=== PATIENT | female | born 1985 | race Caucasian/White ===

== ENCOUNTER → 2021-11-30 | Outpatient (CLI) | payer OTHER | END | disposition home or self-care (01) | LOC: LAB SHORT 10:47 → LAB 10:47 | DX: Z34.93 Encounter for supervision of normal pregnancy, unspecified, third trimester (principal); Z3A.36 36 weeks gestation of pregnancy | CPT/HCPCS: 87081; 87150 ==

== ENCOUNTER 2022-01-08 06:16 | Inpatient (IN) | payer OTHER ==
[~2022-01-08] VITALS: Ht 162.6 cm; Wt 90.0 kg
[2022-01-08 09:27] LABS: BASOPHILS ABSOLUTE AUTO 0.02 K/mm3 (0.00-0.23); BASOPHILS PERCENT AUTO 0 % (0-2); EOSINOPHILS ABSOLUTE AUTO 0.15 K/mm3 (0.00-0.68); EOSINOPHILS PERCENT AUTO 2 % (0-6); Hematocrit 35.8 % (33.0-51.0); Hemoglobin 11.7 g/dL (11.5-16.0); IMMATURE GRAN ABSOLUTE AUTO 0.05 K/mm3 (0.00-0.10); IMMATURE GRAN PERCENT AUTO 1 % (0-1); LYMPHOCYTES ABSOLUTE AUTO 1.64 K/mm3 (0.84-5.20); LYMPHOCYTES PERCENT AUTO 18 % (21-46); MONOCYTES ABSOLUTE AUTO 0.65 K/mm3 (0.16-1.47); MONOCYTES PERCENT AUTO 7 % (4-13); Mean Corpuscular HGB 28.3 pg (26.0-34.0); Mean Corpuscular HGB Conc 32.7 g/dL (31.5-36.5); Mean Corpuscular Volume 87 fL (80-100); NEUTROPHILS ABSOLUTE AUTO 6.61 K/mm3 (1.96-9.15); NEUTROPHILS PERCENT AUTO 73 % (41-73); RDW Coefficient Variation 15.2 % (11.7-14.2); RDW Standard Deviation 48.1 fL (35.1-46.3); Red Blood Cell Count 4.13 M/mm3 (3.80-5.20); White Blood Cell Count 9.12 K/mm3 (4.00-11.30)
[2022-01-08 09:47] LABS: Platelet Count 268 K/mm3 (150-400)
[2022-01-09 03:34] LABS: Source, Urine Foley catheter
[2022-01-09 03:39] LABS: Bilirubin, Urine Neg (Neg); Blood, Urine 3+ (Neg); Glucose Qualitative, Urine Neg (Neg); Ketones, Urine Neg (Neg); Leukocyte Esterase, Urine Neg (Neg); Nitrite, Urine Neg (Neg); Protein, Urine 2+ (Neg); Urobilinogen, Urine NORM (Normal)
[2022-01-09 03:48] LABS: Appearance, Urine Hazy (Clear); Color, Urine Yellow (P-Yellow)
[2022-01-09 03:49] LABS: Bacteria Rare /hpf; Squamous Epithelial Cells Few /hpf (Few); Transitional Epithelial Cells Few /hpf (0-Rare); White Blood Cells, Urine 0-2 /hpf (0-5)
[2022-01-09 04:31] LABS: PCO2 Cord - Arterial 51.2 mmHg (40-50); PO2 Cord - Arterial 17.3 mmHg (16-20); pH Cord - Arterial 7.31 (7.28-7.35)
[2022-01-09 04:33] LABS: PCO2 Cord - Venous 44.7 mmHg (40-50); PO2 Cord - Venous 19.9 mmHg (28-32); pH Umbilical Cord - Venous 7.33 (7.26-7.35)
--- NOTE | 2022-01-09 04:41 | NUR ---
01/09/22 0441 Rohith Palomino PT TO OR WITH HEREDIA IN PLACE. APPROX 50CC CLEAR YELLOW URINE OUTPUT MEASURED DURING CASE. BABY BOY 8 9 BORN AT 0410. TAKEN BY BABY NURSE AND SECOND STAFF MEMBER. CORD GAS AND CORD SENT WITH STAFF WITH BABY. PLACENTA PLACED IN BAG AND LABELED.
[2022-01-09 12:37] LABS: BASOPHILS ABSOLUTE AUTO 0.02 K/mm3 (0.00-0.23); BASOPHILS PERCENT AUTO 0 % (0-2); EOSINOPHILS ABSOLUTE AUTO 0.02 K/mm3 (0.00-0.68); EOSINOPHILS PERCENT AUTO 0 % (0-6); Hematocrit 32.6 % (33.0-51.0); Hemoglobin 10.2 g/dL (11.5-16.0); IMMATURE GRAN ABSOLUTE AUTO 0.08 K/mm3 (0.00-0.10); IMMATURE GRAN PERCENT AUTO 0 % (0-1); LYMPHOCYTES ABSOLUTE AUTO 1.78 K/mm3 (0.84-5.20); LYMPHOCYTES PERCENT AUTO 10 % (21-46); MONOCYTES ABSOLUTE AUTO 0.73 K/mm3 (0.16-1.47); MONOCYTES PERCENT AUTO 4 % (4-13); Mean Corpuscular HGB 27.7 pg (26.0-34.0); Mean Corpuscular HGB Conc 31.3 g/dL (31.5-36.5); Mean Corpuscular Volume 89 fL (80-100); Mean Platelet Volume 9.4 fL (9.1-12.4); NEUTROPHILS ABSOLUTE AUTO 16.15 K/mm3 (1.96-9.15); NEUTROPHILS PERCENT AUTO 86 % (41-73); Platelet Count 246 K/mm3 (150-400); RDW Coefficient Variation 15.4 % (11.7-14.2); RDW Standard Deviation 49.7 fL (35.1-46.3); Red Blood Cell Count 3.68 M/mm3 (3.80-5.20); White Blood Cell Count 18.78 K/mm3 (4.00-11.30)
--- NOTE | 2022-01-09 18:33 | NUR ---
UP TO WHEEL CHAIR TO SEE DAUGHTER OUT THE WINDOW. TOLERATED VERY WELL. PAIN WELL CONTROLLED WITH MEDS. REPORT WILL BE GIVEN TO ONCOMING SHIFT.
[2022-01-11] MEDS ORDERED: Percocet 5-3251 EACH PO (08:04)
[2022-01-11] MEDS ORDERED: PRENATAL TABLE1 EAC2 PO (08:05)
[2022-01-11] MEDS ORDERED: DOCU100 PO (08:05)
--- NOTE | 2022-01-11 10:32 | NUR ---
DISCHARGE INSTRUCTIONS REVIEWED AND SIGNED. BANDS MATCHED. PT TO BE DISCHARGED TO HOME WITH .
--- NOTE | 2022-01-15 09:48 | NUR ---
01/15/22 0930 Pt did not shopw up for scheduled port follow up appontment, was called and she says she had the appointment in her phone for 1100 today. Rescheduled for 01-16-22 at 1100
--- NOTE | 2022-02-07 12:08 | NUR ---
UPDATED OR SURGICAL CHECKLIST PER EMR/RN
== END 2022-01-11 11:00 | disposition home or self-care (01) | DRG 788 ==
LOC: OBS 06:16 → BC 06:21 → OBS 06:26 → BC 06:29
PROVIDERS: ADMIT Family Medicine
PROC: 10D00Z1 Extraction of Products of Conception, Low, Open Approach (ICD-10-PCS; principal; 2022-01-08)
PROC: 3E033VJ Introduction of Other Hormone into Peripheral Vein, Percutaneous Approach (ICD-10-PCS; 2022-01-08)
PROC: 00HU33Z Insertion of Infusion Device into Spinal Canal, Percutaneous Approach (ICD-10-PCS; 2022-01-08)
PROC: 3E0R3NZ Introduction of Analgesics, Hypnotics, Sedatives into Spinal Canal, Percutaneous Approach (ICD-10-PCS; 2022-01-08)
DX: O48.0 Post-term pregnancy (principal); Z3A.42 42 weeks gestation of pregnancy; Z37.0 Single live birth; Z67.10 Type A blood, Rh positive; O76 Abnormality in fetal heart rate and rhythm complicating labor and delivery; O99.892 Other specified diseases and conditions complicating childbirth; R50.9 Fever, unspecified
CPT/HCPCS: 36415; 51702; 81001; 82803; 85025; 86850; 86900; 86901; 87086; A9270; J0290; J0456; J0690; J1885; J2001; J2210; J2590; J2765; J3010; J7050; J7120

== ENCOUNTER → 2022-02-20 | Outpatient (CLI) | payer OTHER ==
[~2022-02-20] MED LIST: DOCU100 PO; PRENATAL TABLE1 EAC2 PO; Percocet 5-3251 EACH PO
[2022-02-22 11:01] LABS: HPV 16 Negative (Negative); HPV 18 Negative (Negative); HPV OTHER HR TYPES Negative (Negative)
== END | disposition home or self-care (01) ==
LOC: LAB 15:26 → LAB SHORT 15:26
PROVIDERS: Family Medicine
DX: Z12.4 Encounter for screening for malignant neoplasm of cervix (principal)
CPT/HCPCS: 87624; G0123